=== PATIENT | male | born 1995 | race Caucasian/White ===

== ENCOUNTER 2016-07-03 16:48 | Inpatient (IN) | payer OTHER ==
[~2016-07-03] VITALS: Ht 188 cm; Wt 69.4 kg
--- NOTE | 2016-07-03 17:53 | NUR ---
PRE-ADMISSION Pre admission done at 1753, patient presents in stable condition, alert and oriented x4, vital signs stable. Bp: 132/87 p: 92, t: 97.8, r: 16, o2 sat: 96%. Patient is a 21 year old male from [place]. Patient reports he is here to detox off of heroin. Patient Denies any food or drug allergies. Patient denies having any seizure history. Patient is 6 feet 2 inches and weighs 153 lbs. unit protocols explained to patient with good verbal understanding.
[2016-07-03 17:59] VITALS: BP 132/87
[2016-07-03] MEDS ORDERED: FLUO20CA36 PO (18:33)
[2016-07-03] MEDS ORDERED: LORA1TAB PO (18:33)
[2016-07-03] MEDS ORDERED: OLAN10TA3 PO (18:33)
[2016-07-03] MEDS ORDERED: MIRT45TA PO (18:33)
[2016-07-03] MEDS ORDERED: BREX2TAB PO (18:33)
[2016-07-03] MEDS ORDERED: ACETAMINOPHEN 325 MG TABLET PO PRN (19:00)
[2016-07-03] MEDS ORDERED: IBUPROFEN 400 MG TABLET PO PRN (19:00)
[2016-07-03] MEDS ORDERED: CLONIDINE HCL 0.1 MG TABLET PO PRN (19:00)
[2016-07-03] MEDS ORDERED: THIAMINE HCL 200 MG/2 ML VIAL IM ONE (19:00)
[2016-07-03] MEDS ORDERED: LORAZEPAM 1 MG TABLET PO PRN ×2 (19:00)
[2016-07-03] MEDS ORDERED: MAGNESIUM HYDROXIDE 30 ML LIQUID UDC PO PRN (19:00)
[2016-07-03] MEDS ORDERED: BUPRENORPHINE HCL 2 MG TAB.SUBL SL PRN (19:00)
[2016-07-03] MEDS ORDERED: LORAZEPAM 2 MG/1 ML VIAL IM PRN (19:00)
[2016-07-03] MEDS ORDERED: LOPERAMIDE HCL 2 MG CAPSULE PO PRN ×2 (19:00)
--- NOTE | 2016-07-03 19:09 | NUR ---
ADMISSION Patient is a 21 year old male from [place]. Arrived to [facility] at 1815, Patients vital signs were stable, and taken at pre-admission office. Patient denies any food or drug allergies. Patients body assessment completed noted with multiple track tony on Bilateral A/C areas. No skin breakdown noted. Patients body search completed by male intake, no contraband found. Patient reports substance use history of: 1. heroin, began using 3 years ago, has been using daily 1.5-1 gram daily IV for one year. Last used 07/03/2016 0.25gram IV. 2. Ativan, began using prescription Ativan at the age of 12, per patient takes medication as prescribed, per patient prescription is: 1mg Ativan Po QID. Per patient takes as prescribed, last took 07/03/5016 0600 1mg. 3. marijuana began smoking marijuana since 8th grade currently has been smoking few joints daily since the 8th grade last used, 07/02/2016 few joints Patient reports longest period of sobriety was for 7 days. Reports has only been to one treatment center, [place] [facility] for 7 days one month ago. Patient reports he was diagnosed with depression, anxiety and PTSD at the age of 12, reports he has a psychiatrist, Dr. Derick Holloway at [facility], last saw him last week. Patient reports he takes medication for depression, and for anxiety, patient did not bring any home medications with him. Medications were reported by patient were input into [employer] under reconciled Meds. Patient reports his primary care physician is Dr. Stevens at [facility] in [place]. Patient denies any history of seizures. Patient reports family substance use of: father was an alcoholic Patient is alert and oriented x4, noted tearful at times and flushed. Patient presenting with heart rate of: 92, c/o chills, mild bone and joint aches, moist eyes, and anxiety with cow score of: 6 and ciwa score of: 4. Abdomen is soft and non distended, bowel sounds heard in all quadrants. Patients lungs clear upon auscultation. Safety measures in place. Call light kept with in reach. Fall precautions observed at all times. Dr. Alcazar at [facility] and notified of new admission, patient was seen by psychiatrist. Dr. Aaron Almonte notified of new admission, per MD with new telephone orders, MD unable to input orders at this time. Orders were read back and verified by RN and input by RN. Will continue to monitor patient closely. Safety measures in [facility]. Call light kept with in reach.
[2016-07-03 19:33] LABS: BASOPHILS % (AUTO) 0.6 % (0.0-2.0); EOSINOPHILS # (AUTO) 0.3 K/uL (0.0-0.7); EOSINOPHILS % (AUTO) 4.5 % (0.0-7.0); HEMATOCRIT 34.2 % (40-50); HEMOGLOBIN 11.3 G/DL (14.0-18.0); LYMPHOCYTES # (AUTO) 1.5 K/UL (0.8-4.8); LYMPHOCYTES % (AUTO) 24.8 % (20.5-74.5); MEAN CORPUSCULAR HEMOGLOBIN 29.5 UUG (27.0-31.0); MEAN CORPUSCULAR HGB CONC 33 g/dL (32.0-37.0); MEAN CORPUSCULAR VOLUME 89.4 FL (82.0-92.0); MONOCYTES # (AUTO) 0.9 K/UL (0.1-1.30); NEUTROPHILS # (AUTO) 3.5 K/UL (1.8-8.9); NEUTROPHILS % (AUTO) 56.1 % (31.5-64.5); PLATELET COUNT (AUTO) 291 K/UL (150-450); RED BLOOD CELL COUNT(AUTO) 3.82 MIL/UL (4.7-6.1); RED CELL DISTRIBUTION WIDTH 12.3 % (11.5-14.5); WHITE BLOOD COUNT (AUTO) 6.2 K/UL (4.0-11.2)
[2016-07-03 19:50] LABS: ALANINE AMINOTRANSFERASE 51 U/L (16-63); ALBUMIN 3.2 g/dL (3.4-5.0); ALKALINE PHOSPHATASE 64 U/L (50-136); ASPARTATE AMINOTRANSFERASE 34 U/L (15-37); BILIRUBIN,TOTAL 0.4 mg/dL (0.2-1.0); CALCIUM 8.3 mg/dL (8.5-10.1); CARBON DIOXIDE 30 mmol/L (21-32); CHLORIDE 102 mmol/L (98-107); CREATININE 0.9 mg/dL (0.6-1.3); GFR 108 mL/min (>60); GLUCOSE 121 mg/dL (74-106); MAGNESIUM 1.8 mg/dL (1.8-2.4); POTASSIUM 3.8 mmol/L (3.5-5.1); SODIUM SERUM 139 mmol/L (136-145); TOTAL PROTEIN, SERUM 6.6 g/dL (6.4-8.2); UREA NITROGEN, BLOOD 11 mg/dL (7-18)
[2016-07-03 19:53] LABS: ETHANOL < 3 MG/DL (0-0)
[2016-07-03 20:00] VITALS: BP 109/53
--- NOTE | 2016-07-03 20:00 | NUR ---
START OF SHIFT NOTE PATIENT IN ROOM, RESTING. PATIENT ALERT AND ORIENTED X 4. PATIENT C/O GENERALIZED BODY ACHES 8/10, NON/V, HOT AND COLD SWEATS, STUFFY NOSE , NO ABDOMINAL CRAMPING, ANXIETY , NO TREMORS . DENIES SI/HI. RECEIVED REPORT FROM DAY SHIFT NURSE. PATIENT IS NEWLY ADMITTED FOR OPIATE AND BENZO DEPENDENCE. PATIENT HAS PRN ATIVAN AND SUBUTEX AVAILABLE. PATIENT IS FULL CODE, REGULAR DIET AND NO KNOWN ALLERGY. PATIENT REPORTS PMH OF DEPRESSION, ANXIETY AND PTSD (AGE 12). NO SEIZURE HISTORY. PATIENT'S DRUG OF CHOICE ARE HEROIN IV 1.5-1 GRAM FOR A YEAR , ATIVAN SL (PRESCRIBED) 1 MG QID FOR A YEAR AND MARIJUANA "FEW JOINTS" SINCE 8TH GRADE. PATIENT HAS MULTIPLE TRACK BEARD ON BILATERAL A/C AREAS. PATIENT IS FALL PRECAUTION. VS STABLE. PATIENT DID NOT REQUIRE ANY PRN MEDICATION DURING THE DAY. LAST COWS 6 AND CIWA 4. PATIENT SEEN BY DR. SANTA. SAFETY MEASURES IN PLACE. CALL LIGHT IN REACH. WILL CONTINUE TO MONITOR.
[2016-07-03 20:11] LABS: HIV-1 p24 ANTIGEN NON REACTIVE (NONREACTIVE); HIV-1/2 ANTIBODY NON REACTIVE (NONREACTIVE)
[2016-07-03] MEDS: METHOCARBAMOL 750 MG TABLET PO PRN (20:35)
[2016-07-03] MEDS: MIRTAZAPINE 15 MG TABLET PO SCH (20:35)
[2016-07-03] MEDS: OLANZAPINE 5 MG TABLET PO SCH (20:35)
--- NOTE | 2016-07-03 20:35 | NUR ---
PRN VISTARIL/ROBAXIN ADMINISTRATION PATIENT C/O ANXIETY AND GENERALIZED BODY ACHES 09/26. PRN VISTARIL AND ROBAXIN GIVEN. WILL MONITOR FOR EFFECTIVENESS
[2016-07-03] MEDS: HYDROXYZINE PAMOATE 25 MG CAPSULE PO PRN (20:36)
--- NOTE | 2016-07-03 21:35 | NUR ---
PRN VISTARIL/ROBAXIN RE-ASSESSMENT PATIENT IN BED WITH EYES CLOSED. NO S/S OF DISTRESS. NO FACIAL GRIMACING. RESPIRATION EVEN AND UNLABORED. SAFETY MEASURES IN PLACE. CALL LIGHT IN REACH. WILL CONTINUE TO MONITOR.
[2016-07-04] VITALS (7 sets, daily range): BP systolic 105–122; BP diastolic 42–76
[2016-07-04 05:43] LABS: *AMPHETAMINE, URINE NEGATIVE (NEGATIVE); *BARBITURATE, URINE NEGATIVE (NEGATIVE); *CANNABINOID, URINE POSITIVE (NEGATIVE); *COCCAINE, URINE NEGATIVE (NEGATIVE); *OPIATE, URINE POSITIVE (NEGATIVE); *PHENCYCLIDINE SCREEN,URINE NEGATIVE (NEGATIVE)
--- NOTE | 2016-07-04 07:18 | NUR ---
END OF SHIFT NOTE PATIENT REMAIN ALERT AND ORIENTED X 4. PATIENT C/O GENERALIZED BODY ACHES 8/10, NON/V, HOT AND COLD SWEATS, STUFFY NOSE , NO ABDOMINAL CRAMPING, ANXIETY , NO TREMORS . DENIES SI/HI. PATIENT IS NEWLY ADMITTED FOR OPIATE AND BENZO DEPENDENCE. PATIENT HAS PRN ATIVAN AND SUBUTEX AVAILABLE. PATIENT IS FULL CODE, REGULAR DIET AND NO KNOWN ALLERGY. PATIENT REPORTS PMH OF DEPRESSION, ANXIETY AND PTSD (AGE 12). NO SEIZURE HISTORY. PATIENT'S DRUG OF CHOICE ARE HEROIN IV 1.5-1 GRAM FOR A YEAR , ATIVAN SL (PRESCRIBED) 1 MG QID FOR A YEAR AND MARIJUANA "FEW JOINTS" SINCE 8TH GRADE. PATIENT HAS MULTIPLE TRACK BEARD ON BILATERAL A/C AREAS. PATIENT IN HIS ROOM MOST OF THE SHIFT. PATIENT WAS GIVEN PRN VISTARIL AND ROBAXIN AT 2034. PATIENT IS FALL ON PRECAUTION. PATIENT WAS SEEN BY DR. SANTA LAST NIGHT. PATIENT WAS STARTED ON ZYPREXA AND REMERON AT 2100. SAFETY MEASURES IN PLACE. CALL LIGHT IN REACH. WILL CONTINUE TO MONITOR. SLEPT 9 HOURS. FLUID INTAKE 300 ML. VOIDED X 1 . NO BM. LAST COWS 2 AND CIWA 1
--- NOTE | 2016-07-04 08:00 | NUR ---
START OF SHIFT Pt 21 y/o male admitted for opiate / BZO dependence. Pt received in room on bed with eyes closed resting, but easily arousable to name. Pt alert and oriented to name, place, and time. Perrla. Skin warm and dry to touch. Respirations even and unlabored. Bilateral hand tremors noted slightly. It was reported that pt slept for 9 hours last night. Bed on lowest position with side rails x2 up for safety. Call light within reach. No distress noted at this time.
[2016-07-04] MEDS ORDERED: TUBERCULIN,PURIF.PROT.DERIV. 5 TU/0.1 ML TEST ID ONE ×2 (09:00)
[2016-07-04] MEDS: THIAMINE HCL 100 MG TABLET PO SCH (09:00)
[2016-07-04] MEDS: MULTIVITAMINS,THERAPEUTIC TABLET PO SCH (09:00)
[2016-07-04] MEDS: METHOCARBAMOL 750 MG TABLET PO PRN ×2 (09:00→21:26)
[2016-07-04] MEDS ORDERED: MULTIVITAMINS,THERAPEUTIC TABLET PO SCH (09:00)
[2016-07-04] MEDS: FOLIC ACID 1 MG TABLET PO SCH (09:00)
[2016-07-04] MEDS: FLUOXETINE HCL 20 MG CAPSULE PO SCH (09:00)
--- NOTE | 2016-07-04 09:00 | NUR ---
PRN Pt with body aches 08/26. robaxin po prn per MD order given and tolerated well.
[2016-07-04] MEDS: ONDANSETRON ODT 4 MG TAB.RAPDIS SL PRN (09:18)
--- NOTE | 2016-07-04 09:18 | NUR ---
PRN Pt states feel nauseated. Zofran po prn per MD order given and tolerated well.
--- NOTE | 2016-07-04 10:00 | NUR ---
PRN EVAL Pt states pain level 0/10.
--- NOTE | 2016-07-04 10:18 | NUR ---
PRN EVAL Pt denies any nausea at this time.
--- NOTE | 2016-07-04 11:36 | NUR ---
PRN Pt was seen by Dr. Almonte. cows=12. Sweats noted. Pt states he has body aches. Subutex po prn per MD order given and tolerated well.
--- NOTE | 2016-07-04 12:36 | NUR ---
PRN EVAL cows=6.
[2016-07-04] MEDS: GABAPENTIN 300 MG CAPSULE PO SCH (14:20)
--- NOTE | 2016-07-04 14:21 | NUR ---
PRN Pt states feels anxious. Addendum: 07/04/16 at 1638 by AD BRAGA RN Cataprlynsey po prn per MD order given and tolerated well.
--- NOTE | 2016-07-04 15:17 | NUR ---
Therapist encouraged client to attend group therapy today. Client asked what time groups were held at and therapist informed client. Client stated that he would consider going.
--- NOTE | 2016-07-04 15:21 | NUR ---
PRN EVAL Pt observed on bed in room watching television. No distress noted at thsi time.
--- NOTE | 2016-07-04 19:38 | NUR ---
END OF SHIFT Pt 21 y/o male admitted for opiate / BZO dependence. Perrla. Skin warm and dry to touch. Respirations even and unlabored. Bilateral hand tremors noted slightly. Pt observed isolative to room throughout the day. Pt was seen by Dr. Almonte today. Pt medication compliant and tolerated well. No ASe noted. Bed on lowest position with side rails x2 up for safety. Call light within reach. No distress noted at this time.
--- NOTE | 2016-07-04 20:00 | NUR ---
START OF SHIFT NOTE PATIENT IN ROOM, RESTING. PATIENT C/O BODY ACHES 6/10, SWEATING, ABDOMINAL CRAMPING , STUFFY NOSE AND NO APPETITE. RECEIVED REPORT FROM DAY SHIFT NURSE. PATIENT IS A 21 YEAR OLD MALE, ADMITTED FOR OPIATE/BENZO DEPENDENCE. PATIENT IS ON 3 DAYS ATIVAN TAPER TO START TOMORROW. PATIENT IS FULL CODE, REGULAR DIET AND NO KNOWN ALLERGY. PATIENT REPORTS PMH OF DEPRESSION ,ANXIETY AND PTSD (AGE 12). PATIENT IS ON FALL PRECAUTION. PATIENT HAS MULTIPLE TRACK BEARD ON BILATERAL A/C AREAS. PATIENT WAS GIVEN PRN CATAPRES, ROBAXIN, ZOFRAN DURING THE DAY AND ONE TIME SUBUTEX . PATIENT IN HIS ROOM MOST OF THE DAY. LAST COWS 6 AND CIWA 2. SAFETY MEASURES IN PLACE. CALL LIGHT IN REACH. WILL CONTINUE TO MONITOR.
[2016-07-04] MEDS ORDERED: GABAPENTIN 300 MG CAPSULE PO SCH (21:00)
[2016-07-04] MEDS: MIRTAZAPINE 15 MG TABLET PO SCH (21:25)
[2016-07-04] MEDS: diphenhydrAMINE 50 MG CAPSULE PO PRN (21:26)
[2016-07-04] MEDS: OLANZAPINE 5 MG TABLET PO SCH (21:26)
[2016-07-04] MEDS: HYDROXYZINE PAMOATE 25 MG CAPSULE PO PRN (21:26)
--- NOTE | 2016-07-04 21:26 | NUR ---
PRN BENADRYL/ROBAXIN AND VISTARIL ADMINISTRATION PATIENT REQUESTS FOR SLEEP AID. REPORTS BODY ACHES 6/10 AND ANXIETY . PATIENT WAS GIVEN BENADRYL/ROBAXIN AND VISTARIL. WILL MONITOR FOR EFFECTIVENESS
--- NOTE | 2016-07-04 22:26 | NUR ---
PRN VISTARIL/BENADRYL/ROBAXIN RE-ASSESSMENT PATIENT IN BED ASLEEP. NO S/S OF DISTRESS. NO FACIAL GRIMACING. RESPIRATION EVEN AND UNLABORED. SAFETY MEASURES IN PLACE. CALL LIGHT IN REACH. WILL CONTINUE TO MONITOR
[2016-07-05] VITALS: BP 123/67
[2016-07-05 04:00] VITALS: BP 119/69
--- NOTE | 2016-07-05 07:14 | NUR ---
END OF SHIFT NOTE PATIENT C/O BODY ACHES 6/10, SWEATING, ABDOMINAL CRAMPING , STUFFY NOSE AND DECREASED APPETITE DURING SHIFT . PATIENT IS ON 3 DAYS ATIVAN TAPER TODAY. PATIENT IN ROOM MOST OF THE SHIFT . PATIENT WAS PRN BENADRYL , ROBAXIN AND VISTARIL AT 2125. PATIENT IN HIS ROOM MOST OF THE SHIFT. ENCOURAGE PATIENT TO ATTEND GROUPS. SAFETY MEASURES IN PLACE. CALL LIGHT IN REACH. WILL CONTINUE TO MONITOR. SLEPT 10 HOURS. FLUID INTAKE 200 ML. VOIDED X .2 NO BM. LAST COWS 2 AND CIWA 2.
[2016-07-05 08:00] VITALS: BP 124/94
--- NOTE | 2016-07-05 08:00 | NUR ---
START OF SHIFT Pt 21 y/o male admitted for opiate / BZO dependence. Pt received in room on bed awake watching television. Pt alert and oriented to name, place, and time. Perrla. Skin warm and dry to touch. Respirations even and unlabored. Bilateral hand tremors noted slightly. Pt states has stomach cramps. It was reported that pt slept for 10 hours last night. Bed on lowest position with side rails x2 up for safety. Call light within reach. No distress noted at this time.
[2016-07-05] MEDS: MULTIVITAMINS,THERAPEUTIC TABLET PO SCH (08:19)
[2016-07-05] MEDS: THIAMINE HCL 100 MG TABLET PO SCH (08:19)
[2016-07-05] MEDS: FLUOXETINE HCL 20 MG CAPSULE PO SCH (08:19)
[2016-07-05] MEDS: GABAPENTIN 300 MG CAPSULE PO SCH ×3 (08:19→20:45)
[2016-07-05] MEDS: FOLIC ACID 1 MG TABLET PO SCH (08:19)
[2016-07-05] MEDS: METHOCARBAMOL 750 MG TABLET PO PRN ×2 (08:19→16:32)
[2016-07-05] MEDS: LORAZEPAM 1 MG TABLET PO SCH ×4 (08:19→20:44)
[2016-07-05] MEDS: DICYCLOMINE HCL 20 MG TABLET PO PRN ×2 (08:19→20:45)
--- NOTE | 2016-07-05 08:19 | NUR ---
PRN Pt states has stomach cramps. Bentyl po prn per MD order given and tolerated well.
--- NOTE | 2016-07-05 08:19 | NUR ---
PRN Pt states has general body aches /. Robaxin po prn per MD order given and tolerated well.
--- NOTE | 2016-07-05 09:19 | NUR ---
PRN EVAL Pt states stomach cramp is tolerable at this time.
--- NOTE | 2016-07-05 09:19 | NUR ---
PRN EVAL Pt observed laying on bed watching television. Pt states pain level 2/10.
[2016-07-05] MEDS: BUPRENORPHINE HCL 2 MG TAB.SUBL SL SCH ×3 (11:46→20:45)
[2016-07-05 12:00] VITALS: BP 110/82
[2016-07-05 12:07] LABS: HCV AB <0.1 s/co ratio (0.0-0.9); HEPATITIS B CORE AB, IgM Negative (Negative); HEPATITIS B SURFACE AG Negative (Negative)
[2016-07-05 16:00] VITALS: BP 131/96
--- NOTE | 2016-07-05 16:30 | NUR ---
PRN Pt states bilateral pain 10/27. Robaxin po prn per MD order given and tolerated well.
--- NOTE | 2016-07-05 17:30 | NUR ---
PRN EVAl Pt states pain level 3/10.
[2016-07-05] MEDS: ONDANSETRON ODT 4 MG TAB.RAPDIS SL PRN (18:06)
--- NOTE | 2016-07-05 18:09 | NUR ---
PRN Pt with 1 vomit episode ( food particles). Zofran po (sl) prn per MD order given and tolerated well.
--- NOTE | 2016-07-05 18:19 | NUR ---
END OF SHIFT Pt 21 y/o male admitted for opiate / bzo dependence. Pt alert and oriented to name, place, and time. Perrla. Skin warm and slightly moist to touch. Respirations even and unlabored. Bilateral hand tremors noted slighlty. Pt observed mostly in room throughout the day. Pt medication compliant and tolerated well. No ASE noted. Pt is on day 1 of ativan taper and day 1 of subutex taper and is tolerating well. Bed on lowest position with side rails x2 up for safety. Call light within reach. No distress noted at this time.
[2016-07-05 20:00] VITALS: BP 132/79
--- NOTE | 2016-07-05 20:00 | NUR ---
END OF SHIFT NOTE PATIENT IN ROOM. ALERT AND ORIENTED X 4. RESPIRATION EVEN AND UNLABORED. PATIENT REPORTS BACK PAIN 7/10, RESTLESS LEGS , ABDOMINAL CRAMPING, SLIGHT TREMORS, NAUSEATED , NO EMESIS, PATIENT VERBALIZES THAT HE RECEIVED ZOFRAN. RECEIVED REPORT FROM DAY SHIFT NURSE. PATIENT IS A 21 YEAR OLD MALE, ADMITTED FOR OPIATE/BENZO DEPENDENCE. PATIENT IS ON 1ST DAY HIS 3 DAYS ATIVAN AND 3 DAYS SUBUTEX TAPER. PATIENT REPORTS PMH OF DEPRESSION, ANXIETY AND PTSD (AGE 12). ON ADMISSION, PATIENT'S SKIN WITH MULTIPLE TRACK BEARD ON BILATERAL A/C AREAS. PATIENT WAS GIVEN PRN ZOFRAN FOR VOMITING X 1. , ROBAXIN AND BENTYL DURING THE DAY. LAST COWS 3 AND CIWA 3. PATIENT IS UP AND ABOUT , ATTENDING GROUPS. ON FALL PRECAUTION. SAFETY MEASURES IN PLACE. CALL LIGHT IN REACH. WILL CONTINUE TO MONITOR. Addendum: 07/06/16 at 0310 by ALLAN MCKEON LVN CHARTING : START OF SHIFT NOTE
[2016-07-05] MEDS: OLANZAPINE 5 MG TABLET PO SCH (20:45)
[2016-07-05] MEDS: MIRTAZAPINE 15 MG TABLET PO SCH (20:45)
--- NOTE | 2016-07-05 20:45 | NUR ---
PRN BENTYL ADMINISTRATION PATIENT C/O ABDOMINAL CRAMPING .PRN BENTYL GIVEN. WILL MONITOR FOR EFFECTIVENESS
--- NOTE | 2016-07-05 21:45 | NUR ---
PRN BENTYL RE-ASSESSMENT PATIENT STATES BENTYL HELPFUL. ABDOMINAL CRAMPING SUBSIDED.
[2016-07-05] MEDS: diphenhydrAMINE 50 MG CAPSULE PO PRN (22:51)
--- NOTE | 2016-07-05 22:51 | NUR ---
PRN BENADRYL/LIORESAL ADMINISTRATION PATIENT C/O OF BACK PAIN 7/10 AND UNABLE TO SLEEP. PRN BENADRYL AND LIORESAL GIVEN . WILL MONITOR FOR EFFECTIVENESS
[2016-07-05] MEDS: BACLOFEN 20 MG TABLET PO PRN (22:52)
--- NOTE | 2016-07-05 23:51 | NUR ---
PRN LIORESAL RE-ASSESSMENT PATIENT'S STATES BACK PAIN SUBSIDED . PAIN LEVEL 2/10. LIORESAL HELPFUL. WILL CONTINUE TO MONITOR
[2016-07-06] VITALS: BP 132/88
--- NOTE | 2016-07-06 02:12 | NUR ---
PRN BENADRYL RE-ASSESSMENT/ONE TIME BENADRYL ADMINISTRATION PATIENT STATES HE STILL UNABLE TO SLEEP. OBTAIN NEW ORDER OF ONE TIME BENADRYL FROM DR. CURRY GIVEN TO PATIENT . WILL MONITOR FOR EFFECTIVENESS
[2016-07-06] MEDS ORDERED: diphenhydrAMINE 50 MG CAPSULE PO ONE (02:15)
--- NOTE | 2016-07-06 03:12 | NUR ---
PRN BENADRYL RE-ASSESSMENT PATIENT IN BED WITH EYES CLOSED. NO S/S OF DISTRESS. WILL CONTINUE TO MONITOR.
[2016-07-06 04:00] VITALS: BP 124/78
--- NOTE | 2016-07-06 07:35 | NUR ---
END OF SHIFT NOTE PATIENT REMAIN ALERT AND ORIENTED X 4. RESPIRATION EVEN AND UNLABORED. PATIENT REPORTED BACK PAIN 7/10, RESTLESS LEGS , ABDOMINAL CRAMPING, SLIGHT TREMORS, NAUSEATED , NO EMESIS DURING SHIFT, PATIENT VERBALIZES THAT HE RECEIVED ZOFRAN. PATIENT IS A 21 YEAR OLD MALE, ADMITTED FOR OPIATE/BENZO DEPENDENCE. PATIENT IS ON 1ST DAY HIS 3 DAYS ATIVAN AND 3 DAYS SUBUTEX TAPER. PATIENT REPORTS PMH OF DEPRESSION, ANXIETY AND PTSD (AGE 12). ON ADMISSION, PATIENT'S SKIN WITH MULTIPLE TRACK BEARD ON BILATERAL A/C AREAS.MONITORED PATIENT THROUGHOUT THE NIGHT. PATIENT WAS GIVEN PRN BENTYL AT 5 FOR ABDOMINAL CRAMPING, BENADRYL, LIORESAL AT 2251 AND ONE TIME BENADRYL AT 0212. PATIENT COMPLIANT WITH MEDICATION . PATIENT IS UP AND ABOUT , ATTENDING GROUPS. ON FALL PRECAUTION. SAFETY MEASURES IN PLACE. CALL LIGHT IN REACH. WILL CONTINUE TO MONITOR. SLEPT 4 HOURS. FLUID INTAKE OF 720 ML. VOIDED X 3. NO BM. LAST COWS 2 AND CIWA 1. ENDORSED TO DAY SHIFT NURSE TO REFER PATIENT TO PSYCHIATRIST FOR SLEEP AID.
--- NOTE | 2016-07-06 07:39 | NUR ---
Start Of Shift Patient Received from forklift truck mechanic nurse. Pt 21 y/o male admitted for opiate / BZO dependence. Pt is full code regular diet on fall and seizure precautions denies any food or drug allergies. Pt received in room on bed awake watching television. Pt is currently on a 3 day Ativan and a 3 day Subutex taper, tolerating well. Pt alert and oriented to name, place, and time. Skin warm and a bit moist to touch. Respirations even and unlabored . Pt's last COWS 2 CIWA 1 taken at 0400. Pt received PRN Bentyl, BenadrylX2 and baclofen per forklift truck mechanic nurse all Meds effective. Pt slept a total of 4 hours last night. Pt encouraged fluids to facilitate detox process. All safety measures in place per hospital policy. Bed in lowest position, side rails up x2, call-light within reach. Will continue to monitor and provide support.
[2016-07-06 08:00] VITALS: BP 121/84
[2016-07-06] MEDS: FOLIC ACID 1 MG TABLET PO SCH (09:08)
[2016-07-06] MEDS: MULTIVITAMINS,THERAPEUTIC TABLET PO SCH (09:08)
[2016-07-06] MEDS: LORAZEPAM 1 MG TABLET PO SCH ×3 (09:08→20:29)
[2016-07-06] MEDS: FLUOXETINE HCL 20 MG CAPSULE PO SCH (09:08)
[2016-07-06] MEDS: THIAMINE HCL 100 MG TABLET PO SCH (09:08)
[2016-07-06] MEDS: GABAPENTIN 300 MG CAPSULE PO SCH ×3 (09:09→20:29)
[2016-07-06] MEDS: BUPRENORPHINE HCL 2 MG TAB.SUBL SL SCH ×2 (09:09→17:50)
[2016-07-06 12:00] VITALS: BP 139/78
[2016-07-06] MEDS: BACLOFEN 20 MG TABLET PO PRN (15:13)
--- NOTE | 2016-07-06 15:13 | NUR ---
PRN MEDICATION Pt c/o generalized muscle pain rating it 5/10 requested something for relief, non-pharmacological techniques interventions provided x3 and were not effective. PRN Baclofen 20mg administered PO, educated pt about s/e of medication and when to contact nurse. all needs met, all safety measures in place, will continue to monitor.
[2016-07-06 16:00] VITALS: BP 134/97
--- NOTE | 2016-07-06 16:13 | NUR ---
PRN REASSESSMENT medication effective pt reported a decrease in pain to 2/10, all needs met will continue to monitor
--- NOTE | 2016-07-06 19:10 | NUR ---
End Of Shift Endorsed report to maintenance mechanic 2nd shift nurse. Pt 21 y/o male admitted for opiate / BZO dependence. Pt is full code regular diet on fall and seizure precautions denies any food or drug allergies. Pt is currently on a 3 day Ativan and a 3 day Subutex taper, tolerating well. Pt remains compliant with the treatment plan. Patient encouraged adequate PO fluid intake as tolerated. Upon assessment patient presented with mild anxiety and some sweats with his last COWS score 3 CIWA 3. @1600. Pts PPD assessed pt is negative for TB. Detox medication effective at reducing withdrawal symptoms. Patient encouraged to attend group therapies/sessions to learn new coping skills to recent relapse, patient denies SI/HI. Pt ate all of his meals his total fluid intake was 1980ml with 2 void and 0 bowel movement Pt received PRN Baclofen 20mg, medication was effective. Safety measures in place. Call light kept within reach. Patient endorsed to maintenance mechanic 2nd shift nurse, all pertinent information discussed.
[2016-07-06 20:00] VITALS: BP 132/87
--- NOTE | 2016-07-06 20:00 | NUR ---
Start of Shift Pt is a 21 year old male admitted for Opiate/Benzo dependence, placed on 3 day Ativan and 3 day Subutex taper. Pt reported using Heroin IV 1.5 - 1g/daily and Ativan 1mg/daily. Pt also reported use of Marijuana "few joints"/daily. PMH: depression, Anxiety and PTSD. NKA, regular diet, fall precautions and full code. Upon assessment, pt presents with anxiety, reports mild body/joint aches, mild chills, skin noted with moderate sweat - skin flushed, respirations even/unlabored, denies SOB/chest pain, denies n/v/d, denies SI/HI, bowel sounds active x4, abdomen soft. Safety measures in place, call light within reach, side rails up x2, bed locked and in low position. Will continue to monitor.
[2016-07-06] MEDS: MIRTAZAPINE 15 MG TABLET PO SCH (20:29)
[2016-07-06] MEDS: OLANZAPINE 5 MG TABLET PO SCH (20:29)
[2016-07-06] MEDS ORDERED: TRAZODONE 100 MG TABLET PO SCH (21:00)
[2016-07-07] VITALS: BP 135/68
--- NOTE | 2016-07-07 | NUR ---
Vital Signs BP 135/68, pulse 86, respirations 16, SpO2 97%, temp 97.8, no pain 0/10 COWS/CIWA deferred d/t sleeping, to assess while pt is awake as ordered. Safety measures in place. Will continue to monitor.
[2016-07-07 04:00] VITALS: BP 118/62
--- NOTE | 2016-07-07 04:00 | NUR ---
Vital Signs BP 118/62, pulse 80, respirations 16, SpO2 97%, temp 97.9, no pain 0/10 COWS/CIWA deferred d/t sleeping, to assess while pt is awake as ordered. Safety measures in place. Will continue to monitor.
--- NOTE | 2016-07-07 07:00 | NUR ---
End of Shift Pt is a 21 year old male admitted for Opiate/Benzo dependence, placed on 3 day Ativan and 3 day Subutex taper. Pt reported using Heroin IV 1.5 - 1g/daily and Ativan 1mg/daily. Pt also reported use of Marijuana "few joints"/daily. PMH: depression, Anxiety and PTSD. NKA, regular diet, fall precautions and full code. During shift, pt presented with anxiety, reported mild body/joint aches, mild chills, skin noted with moderate sweat - skin flushed - scheduled taper medications administered - effective in management of s/s of withdrawal as reports per pt, CIWA 4 and COWS 4. No PRN medications administered. Pt slept for 8 hours, intake of 550 ml PO and void 1. Safety measures in place, call light within reach, side rails up x2, bed locked and in low position. Endorsed to day shift nurse.
--- NOTE | 2016-07-07 07:15 | NUR ---
Start Of Shift Patient Received from assistant shift supervisor nurse. Pt 21 y/o male admitted for opiate / BZO dependence. Pt is full code regular diet on fall and seizure precautions denies any food or drug allergies. Pt received in room on bed awake watching television. Pt continues his 3 day Ativan and a 3 day Subutex taper, tolerating well. Pt alert and oriented to name, place, and time. Skin warm and a bit moist to touch. Respirations even and unlabored . Pt's last COWS 4 CIWA 4 taken at 0400. Pt received no PRN medications last night. Pt slept a total of 8 hours last night. Pt encouraged fluids to facilitate detox process. All safety measures in place per hospital policy. Bed in lowest position, side rails up x2, call-light within reach. Will continue to monitor and provide support.
[2016-07-07 08:00] VITALS: BP 128/78
[2016-07-07] MEDS ORDERED: LORAZEPAM 1 MG TABLET PO SCH (09:00)
[2016-07-07] MEDS ORDERED: BUPRENORPHINE HCL 2 MG TAB.SUBL SL SCH (09:00)
[2016-07-07] MEDS: THIAMINE HCL 100 MG TABLET PO SCH (09:28)
[2016-07-07] MEDS: MULTIVITAMINS,THERAPEUTIC TABLET PO SCH (09:28)
[2016-07-07] MEDS: BACLOFEN 20 MG TABLET PO PRN ×2 (09:28→21:33)
[2016-07-07] MEDS: FLUOXETINE HCL 20 MG CAPSULE PO SCH (09:28)
[2016-07-07] MEDS: GABAPENTIN 300 MG CAPSULE PO SCH ×3 (09:28→21:32)
[2016-07-07] MEDS: FOLIC ACID 1 MG TABLET PO SCH (09:28)
--- NOTE | 2016-07-07 09:28 | NUR ---
PRN MEDICATION Pt c/o generalized muscle pain rating it 6/10 requested something for relief, non-pharmacological techniques interventions provided x3 and were not effective. PRN Baclofen 20mg administered PO, educated pt about s/e of medication and when to contact nurse. all needs met, all safety measures in place, will continue to monitor.
--- NOTE | 2016-07-07 10:28 | NUR ---
PRN REASSESSMENT medication effective pt reported a decrease in pain to 2/10, all needs met will continue to monitor
[2016-07-07 12:00] VITALS: BP 127/89
[2016-07-07 16:00] VITALS: BP 129/91
[2016-07-07 16:15] LABS: *AMPHETAMINE, URINE NEGATIVE (NEGATIVE); *BARBITURATE, URINE NEGATIVE (NEGATIVE); *CANNABINOID, URINE NEGATIVE (NEGATIVE); *COCCAINE, URINE NEGATIVE (NEGATIVE); *OPIATE, URINE NEGATIVE (NEGATIVE); *PHENCYCLIDINE SCREEN,URINE NEGATIVE (NEGATIVE)
--- NOTE | 2016-07-07 19:10 | NUR ---
End Of Shift Endorsed report to fast food shift lead nurse. Pt 21 y/o male admitted for opiate / BZO dependence. Pt is full code regular diet on fall and seizure precautions denies any food or drug allergies. Pt is currently on a 3 day Ativan and a 3 day Subutex taper which he has completed, tolerating well. pt is to be discharged tomorrow, UDS collected, D/C paperwork completed. Pt remains compliant with the treatment plan. Patient encouraged adequate PO fluid intake as tolerated. Upon assessment patient presented with mild anxiety and some sweats with his last COWS score 2 CIWA 2. @1600. Detox medication effective at reducing withdrawal symptoms. Patient encouraged to attend group therapies/sessions to learn new coping skills to recent relapse, patient denies SI/HI. Pt ate all of his meals his total fluid intake was 4000ml with 3 void and 1 bowel movement Pt received PRN Baclofen 20mg, medication was effective. Safety measures in place. Call light kept within reach. Patient endorsed to fast food shift lead nurse, all pertinent information discussed.
[2016-07-07 20:00] VITALS: BP 126/75
--- NOTE | 2016-07-07 20:00 | NUR ---
START OF SHIFT Received report from day shift nurse. Pt attended a group meeting and returned to his room after. He is a 21 yo male admitted to [facility] on 07/03 for opiate and BZD dependence. He is A&O x4 and ambulatory. NKA, full code, and regular diet. He has a PMH of depression, anxiety, and PTSD. On admission he admitted to using heroin IV 1-1.5 grams per day, Ativan 1 mg QID, and marijuana. He completed a 3 day Ativan and 3 day Subutex taper and is scheduled for discharge tomorrow. He reports neck pain, back pain, and anxiety. Minimal other s/s of withdrawal noted. Fall precautions in place. Bed is down with call light in reach.
[2016-07-07] MEDS ORDERED: TRAZODONE 100 MG TABLET PO SCH (21:00)
[2016-07-07] MEDS: OLANZAPINE 5 MG TABLET PO SCH (21:33)
[2016-07-07] MEDS: MIRTAZAPINE 15 MG TABLET PO SCH (21:33)
--- NOTE | 2016-07-07 21:35 | NUR ---
PRN Baclofen administration Pt reports neck and back pain 08/26. He verbalizes that Robaxin has not been effective. PRN Baclofen administered.
--- NOTE | 2016-07-07 22:35 | NUR ---
PRN Baclofen reassessment PRN Baclofen effective. Pt is lying comfortably in bed resting with eyes closed. Respirations even and unlabored. Bed is down with call light in reach.
--- NOTE | 2016-07-08 | NUR ---
0000 Vitals refused. COWS and CIWA deferred. Pt refused to be woken for 0000 Vital signs. Respirations even and unlabored. COWS and CIWA ordered Q4HWA.
--- NOTE | 2016-07-08 04:00 | NUR ---
0400 Vitals refused. COWS and CIWA deferred. Pt refused to be woken for 0400 Vital signs. Respirations even and unlabored. COWS and CIWA ordered Q4HWA.
--- NOTE | 2016-07-08 07:05 | NUR ---
END OF SHIFT Report provided to day shift nurse. Pt is lying in bed resting. He is a 21 yo male admitted to [facility] on 07/03 for opiate and BZD dependence. He is A&O x4 and ambulatory. Pt has NKA, is full code status, and regular diet. He has a PMH of depression, anxiety, and PTSD. On admission he admitted to using heroin IV 1 - 1.5 grams per day, Ativan 1 mg QID, and marijuana. He completed a 3 day Ativan and 3 day Subutex taper and is discharging today. PRN Baclofen administered. Pt verbalized that he is ready for the next step in his recovery. Last COWS 4 and CIWA 2. He drank 1480mL and slept for 8 hours. Fall precautions in place. Bed is down with call light in reach.
--- NOTE | 2016-07-08 07:30 | NUR ---
START OF SHIFT NOTE Received report from night nurse, 21 yo male admitted to [facility] on 07/03 for opiate and BENZO dependence. NKA, full code, and regular diet. Pt has a PMH of depression, anxiety, and PTSD. Pt reported using heroin IV 1-1.5 grams per day, Ativan 1 mg QID, and marijuana. Pt completed a 3 day Ativan and 3 day Subutex taper tolerated well. Pt received PRN Baclofen effective per night nurse, Last CIWA-2, COWS-4, Slept for 8 hours. Received pt alert awake oriented x4 in stable condition. Denies any pain or discomfort at this time. Safety measures in place. Call light within reach. Will cont to monitor.
[2016-07-08 08:00] VITALS: BP 116/69
[2016-07-08] MEDS: GABAPENTIN 300 MG CAPSULE PO SCH (08:56)
[2016-07-08] MEDS: MULTIVITAMINS,THERAPEUTIC TABLET PO SCH (08:56)
[2016-07-08] MEDS: THIAMINE HCL 100 MG TABLET PO SCH (08:56)
[2016-07-08] MEDS: FOLIC ACID 1 MG TABLET PO SCH (08:56)
[2016-07-08] MEDS: FLUOXETINE HCL 20 MG CAPSULE PO SCH (08:56)
[2016-07-08] MEDS ORDERED: HYDR-3895 PO (09:59)
[2016-07-08] MEDS ORDERED: Gabapentin PO (09:59)
[2016-07-08] MEDS ORDERED: Ondansetron SL (09:59)
[2016-07-08] MEDS ORDERED: DICY20TA28 PO (09:59)
[2016-07-08] MEDS ORDERED: METH-33 PO (09:59)
[2016-07-08] MEDS ORDERED: CLON0.1T14 PO (09:59)
[2016-07-08] MEDS ORDERED: Olanzapine PO (09:59)
[2016-07-08] MEDS ORDERED: Baclofen PO (09:59)
[2016-07-08] MEDS ORDERED: Trazodone Hcl PO (09:59)
--- NOTE | 2016-07-08 10:50 | NUR ---
DISCHARGE NOTE Pt was admitted for Opioid and Benzo dependence. Pt states that he has no pain discomfort or s/s of withdrawal. Pt denies any thoughts of suicide. Pt states that he feels ready for discharge. Verbalized his understanding of the discharge instructions. Pt discharge instructions and valuable secured in duffle bag then given to SENIOR TAX ACCOUNTANT. Vital signs WNL. All belongings returned to Pt. Pt ID band removed, Pt ambulated off of the unit. PT left via [employer] [facility] via [employer].
== END 2016-07-08 10:50 | DRG 895 ==
LOC: SRC 16:48
PROVIDERS: ADMIT Internal Medicine; ATTEND Internal Medicine
PROC: HZ2ZZZZ Detoxification Services for Substance Abuse Treatment (ICD-10-PCS; principal; 2016-07-03)
PROC: HZ31ZZZ Individual Counseling for Substance Abuse Treatment, Behavioral (ICD-10-PCS; 2016-07-04)
PROC: HZ41ZZZ Group Counseling for Substance Abuse Treatment, Behavioral (ICD-10-PCS; 2016-07-05)
DX: F11.23 Opioid dependence with withdrawal (principal); F13.230 Sedative, hypnotic or anxiolytic dependence with withdrawal, uncomplicated; Z81.1 Family history of alcohol abuse and dependence; F12.10 Cannabis abuse, uncomplicated; G47.00 Insomnia, unspecified; F32.9 Major depressive disorder, single episode, unspecified; F43.10 Post-traumatic stress disorder, unspecified; Z79.899 Other long term (current) drug therapy; F41.9 Anxiety disorder, unspecified
CPT/HCPCS: 36415; 70030-TC; 80307; 80349; 80361; 83735; 85025; 86592; 86705; 86803; 87340; 87806; A4663; G6040-TC; Q0162; Q0163